=== PATIENT | female | born 1990 | race Caucasian/White ===

== ENCOUNTER 2021-11-05 13:56 | Emergency (ER) | payer OTHER ==
[~2021-11-05] VITALS: Ht 162.6 cm; Wt 95.5 kg
[2021-11-05 13:57] VITALS: BP 134/94
[2021-11-05] MEDS ORDERED: PANTOPRAZOLE 40MG VIAL IV ONE (16:20)
[2021-11-05] MEDS ORDERED: NS 1,000 ML IV ONE (16:20)
[2021-11-05] MEDS ORDERED: KETOROLAC 30 MG/ML 1ML VIAL IV ONE (16:20)
[2021-11-05 16:50] LABS: BASO # 0.1 10^3/uL (0.0-0.2); BASO % 0.5 % (0.0-1.0); EOS % 0.1 % (0.0-3.0); HEMATOCRIT 44.8 % (36.0-47.0); HEMOGLOBIN 15.1 g/dl (12.0-15.5); LYMPH # 0.7 10^3/uL (1.5-5.0); LYMPH % 5.6 % (24.0-44.0); MEAN CORPUSCULAR HEMOGLOBIN 28.9 pg (27.0-33.0); MEAN CORPUSCULAR HGB CONC 33.7 g/dl (32.0-36.5); MEAN CORPUSCULAR VOLUME 85.8 fl (80.0-96.0); MONO # 0.5 10^3/uL (0.0-0.8); MONO % 3.7 % (2.0-8.0); NEUTROPHILS # 11.3 10^3/uL (1.5-8.5); NEUTROPHILS % 89.8 % (36.0-66.0); PLATELET COUNT, AUTOMATED 250 10^3/uL (150-450); RED BLOOD COUNT 5.22 10^6/uL (4.00-5.40); WHITE BLOOD COUNT 12.6 10^3/uL (4.0-10.0)
[2021-11-05 17:36] LABS: ALBUMIN 4.2 GM/DL (3.2-5.2); ALT/SGPT 20 U/L (12-78); BILIRUBIN,DIRECT < 0.1 MG/DL (0.0-0.2); BILIRUBIN,TOTAL 0.4 MG/DL (0.2-1.0); LIPASE 106 U/L (73-393); TOTAL PROTEIN 7.6 GM/DL (6.4-8.2)
[2021-11-05 17:37] LABS: RSV AMPLIFICATION NEGATIVE (NEGATIVE)
[2021-11-05] MEDS ORDERED: CIPROFLOXACIN 500MG TABLET PO ONE (18:30)
[2021-11-05] MEDS ORDERED: CIPR-249 PO (18:37)
[2021-11-05] MEDS ORDERED: ONDA4TAB6 PO (18:47)
[2021-11-05] MEDS ORDERED: METOCLOPRAMIDE INJ 10MG/2ML VIAL (J2765 PER 1) IV ONE (18:50)
== END 2021-11-05 19:05 | disposition home or self-care (01) ==
LOC: M ED 13:56
DX: N39.0 Urinary tract infection, site not specified (principal); R10.13 Epigastric pain; J02.9 Acute pharyngitis, unspecified; R06.02 Shortness of breath; R42 Dizziness and giddiness; R51.9 Headache, unspecified; E66.9 Obesity, unspecified
CPT/HCPCS: 80047; 80076; 81001; 83690; 84702; 85025; 87088; 87186; 87631; 96361; 96374; 96375; 99283; C9113; J1885; J2765

== ENCOUNTER → 2022-05-06 | Outpatient (REF) | payer OTHER ==
[~2022-05-06] MED LIST: CIPR-249 PO; ONDA4TAB6 PO
[2022-05-10 14:10] LABS: CALPROTECTIN STOOL <16 ug/g (0-120); PANCREATIC ELASTASE STOOL 147 (>200)
== END ==
LOC: M LAB REF 15:09
PROVIDERS: ATTEND Internal Medicine Gastroenterology
DX: R10.84 Generalized abdominal pain (principal); R19.7 Diarrhea, unspecified

== ENCOUNTER → 2022-05-06 | Outpatient (CLI) | payer OTHER ==
[2022-05-06 17:01] LABS: IMMUNOGLOBULIN A 130.8 MG/DL (40-350)
[2022-05-06 17:04] LABS: FREE T4 1.23 NG/DL (0.89-1.76); THYROID STIMULATING HORMONE 1.023 uIU/ML (0.55-4.78)
== END ==
LOC: M LAB 15:20
PROVIDERS: ATTEND Internal Medicine Gastroenterology
DX: R10.84 Generalized abdominal pain (principal)

== ENCOUNTER → 2022-06-10 | Outpatient (CLI) | payer OTHER ==
[~2022-06-10] MED LIST changes: +DICY20TA20 PO; +TRAM50TA2 PO
== END ==
LOC: M LABSMTC 11:12
PROVIDERS: ATTEND Anesthesiology
DX: Z01.812 Encounter for preprocedural laboratory examination (principal)

== ENCOUNTER 2022-06-14 12:17 | Day surgery (SDC) | payer OTHER ==
[~2022-06-14] VITALS: Ht 163.8 cm; Wt 60.6 kg
[~2022-06-14 12:17] MED LIST changes: +NS 1,000 ML IV ONE
[2022-06-14] MEDS ORDERED: THERTAB52 PO (13:22)
[2022-06-14] MEDS ORDERED: fentaNYL 100 MCG/2 ML INJECTION As Ordered ONE (13:46)
[2022-06-14] MEDS ORDERED: propofoL 200 MG/20 ML VIAL As Ordered ONE ×2 (13:46→14:40)
[2022-06-14] MEDS ORDERED: LIDOCAINE 2% 100MG/5ML SDV (FOR ANES.) As Ordered ONE (13:46)
[2022-06-14] MEDS ORDERED: ePHEDrine SULFATE 25 MG/5 ML(5MG/ML) SYRINGE As Ordered ONE (14:41)
[2022-06-14 15:16] VITALS: BP 112/72
== END 2022-06-14 15:53 | disposition home or self-care (01) ==
LOC: M OPP 12:17
PROVIDERS: ATTEND Internal Medicine Gastroenterology
DX: K57.30 Diverticulosis of large intestine without perforation or abscess without bleeding (principal); K22.10 Ulcer of esophagus without bleeding; N13.70 Vesicoureteral-reflux, unspecified; J45.909 Unspecified asthma, uncomplicated; G35 Multiple sclerosis; F32.9 Major depressive disorder, single episode, unspecified; F41.9 Anxiety disorder, unspecified; Z79.899 Other long term (current) drug therapy; Z87.440 Personal history of urinary (tract) infections
CPT/HCPCS: 43239; 45380; 88305; J3010

== ENCOUNTER → 2022-07-08 | Outpatient (CLI) | payer OTHER, MEDICAID ==
[~2022-07-08] MED LIST changes: -NS 1,000 ML IV ONE; +THERTAB52 PO
== END ==
LOC: M RAD 07:25
PROVIDERS: ATTEND Internal Medicine Gastroenterology
DX: K82.8 Other specified diseases of gallbladder (principal)
CPT/HCPCS: 78227; A9537

== ENCOUNTER → 2022-08-08 | Outpatient (CLI) | payer OTHER, MEDICAID | LOC: M WHC 09:42 | PROVIDERS: ATTEND Internal Medicine Gastroenterology | DX: R10.84 Generalized abdominal pain (principal); K83.8 Other specified diseases of biliary tract ==